=== PATIENT | male | born 2000 | race Caucasian/White ===

== ENCOUNTER 2018-08-25 21:22 | Emergency (ER) | payer MEDICAID ==
[~2018-08-25] VITALS: Ht 180.3 cm; Wt 89.0 kg
[2018-08-25] MEDS ORDERED: ibuprofen tablet 400 MG TABLET PO ONE ×2 (21:55→22:00)
[2018-08-25 23:04] VITALS: BP 128/71
== END 2018-08-25 23:09 | disposition home or self-care (01) ==
LOC: ER 21:23
DX: T23.012A Burn of unspecified degree of left thumb (nail), initial encounter (principal); F11.90 Opioid use, unspecified, uncomplicated; X12.XXXA Contact with other hot fluids, initial encounter; Y93.G3 Activity, cooking and baking; Y92.89 Other specified places as the place of occurrence of the external cause; Y99.8 Other external cause status
CPT/HCPCS: 99282

== ENCOUNTER 2021-03-09 17:55 | Emergency (ER) | payer MEDICAID ==
[~2021-03-09] VITALS: Ht 180.3 cm; Wt 92.1 kg
[2021-03-09 18:01] VITALS: BP 112/82
[2021-03-09] MEDS ORDERED: ondansetron/PF 4mg/2ml inj IV ONE (18:25)
[2021-03-09] MEDS ORDERED: normal saline 1000ML IV soln IVB ONE (18:25)
[2021-03-09 18:55] LABS: BASOPHILS % (AUTO) 0.1 % (0-1); EOSINOPHILS % (AUTO) 0.2 % (0-6); HEMATOCRIT 48.4 % (42.0-52.0); HEMOGLOBIN 16.5 g/dl (14.0-17.9); LYMPHOCYTES # (AUTO) 0.3 X10'3 (1.1-4.8); LYMPHOCYTES % (AUTO) 2.5 % (21-51); MEAN CORPUSCULAR HEMOGLOBIN 28.8 PG (27.0-31.0); MEAN CORPUSCULAR HGB CONC 34.2 g/dL (33.0-36.5); MEAN CORPUSCULAR VOLUME 84.3 FL (78-98); MONOCYTES # (AUTO) 0.4 X10'3 (0-0.9); MONOCYTES % (AUTO) 3.3 % (2-12); NEUTROPHILS # (AUTO) 11.5 X10'3 (1.8-7.7); NEUTROPHILS % (AUTO) 93.9 % (42-75); PLATELET COUNT 235 X10'3 (140-440); RED BLOOD COUNT 5.74 X10'6 (4.70-6.10); RED CELL DISTRIBUTION WIDTH 14.4 % (11.5-14.5); WHITE BLOOD COUNT 12.3 X10'3 (4.5-11.0)
[2021-03-09 19:09] LABS: ALANINE AMINOTRANSFERASE 49 U/L (12-78); ALBUMIN 4.7 G/DL (3.4-5.0); ALBUMIN/GLOBULIN RATIO 1.3 (1.1-1.5); ALKALINE PHOSPHATASE 86 IU/L (46-116); ANION GAP 15 (8-16); ASPARTATE AMINO TRANSFERASE 21 U/L (10-37); BILIRUBIN,TOTAL 1.9 MG/DL (0.1-1.0); BLOOD UREA NITROGEN 17 MG/DL (7-18); BUN/CREATININE RATIO 16.7 (5.4-32.0); CALCIUM 8.9 MG/DL (8.5-10.1); CHLORIDE 102 MMOL/L (99-107); CREATININE 1.02 MG/DL (0.60-1.10); GLUCOSE 122 MG/DL (70-104); LIPASE 197 U/L (73-393); MAGNESIUM 1.6 MG/DL (1.5-2.4); SODIUM 139 MMOL/L (135-145); TOTAL CARBON DIOXIDE 22.4 MMOL/L (24-32); TOTAL PROTEIN 8.4 G/DL (6.4-8.2); eGFR > 90 ML/MIN
[2021-03-09 19:12] LABS: ETHANOL < 0.010 GM/DL (0.0-0.010)
[2021-03-09] MEDS ORDERED: potassium Cl 20 mEq SR tablet PO ONE (19:15)
[2021-03-09] MEDS ORDERED: iohexol 300mg/ml 100ml inj. ONE (19:18)
[2021-03-09 20:12] LABS: CLARITY,URINE CLEAR (Clear); COLOR,URINE YELLOW (Yellow); GLUCOSE, URINE NEGATIVE (Neg); KETONES,URINE 15 mg/dl (Neg); LEUKOCYTE ESTERASE ,URINE NEGATIVE (Neg); NITRITES, URINE NEGATIVE (Neg); OCCULT BLOOD,URINE NEGATIVE (Neg); PROTEIN,URINE NEGATIVE (Neg); UROBILINOGEN,URINE 0.2 E.U/dL (0.2-1.0)
[2021-03-09 20:14] LABS: UA COLLECTION TYPE URINAL
== END 2021-03-09 20:43 | disposition home or self-care (01) ==
LOC: ER 17:57
DX: R10.84 Generalized abdominal pain (principal); R50.9 Fever, unspecified; R42 Dizziness and giddiness; F12.10 Cannabis abuse, uncomplicated; F11.10 Opioid abuse, uncomplicated; Z20.822 Contact with and (suspected) exposure to COVID-19
CPT/HCPCS: 36415; 74177; 80053; 80320; 81003; 83690; 83735; 85025; 87635; 96361; 96374; 99285; C9803; J2405; J7030; Q9967

== ENCOUNTER 2024-07-25 16:15 | Emergency (ER) | payer MEDICAID ==
[~2024-07-25] VITALS: Ht 182.9 cm; Wt 75.9 kg
[2024-07-25 16:42] LABS: BASOPHILS % (AUTO) 0.5 % (0-1); EOSINOPHILS # (AUTO) 0.1 X10'3 (0-0.9); EOSINOPHILS % (AUTO) 2.2 % (0-6); HEMATOCRIT 42.6 % (42.0-52.0); HEMOGLOBIN 14.5 g/dl (14.0-17.9); LYMPHOCYTES # (AUTO) 1.6 X10'3 (1.1-4.8); LYMPHOCYTES % (AUTO) 27.1 % (21-51); MEAN CORPUSCULAR HEMOGLOBIN 29.4 PG (27.0-31.0); MEAN CORPUSCULAR VOLUME 86.4 FL (78-98); MONOCYTES # (AUTO) 0.6 X10'3 (0-0.9); MONOCYTES % (AUTO) 10.5 % (2-12); NEUTROPHILS # (AUTO) 3.6 X10'3 (1.8-7.7); NEUTROPHILS % (AUTO) 59.7 % (42-75); PLATELET COUNT 249 X10'3 (140-440); RED BLOOD COUNT 4.94 X10'6 (4.70-6.10); RED CELL DISTRIBUTION WIDTH 14.2 % (11.5-14.5)
[2024-07-25 16:57] LABS: ALANINE AMINOTRANSFERASE 14 U/L (12-78); ALBUMIN 4.2 G/DL (3.4-5.0); ALBUMIN/GLOBULIN RATIO 1.2 (1.1-1.5); ALKALINE PHOSPHATASE 103 IU/L (46-116); ANION GAP 5 (8-16); ASPARTATE AMINO TRANSFERASE 11 U/L (10-37); BILIRUBIN,TOTAL 0.8 MG/DL (0.1-1.0); BLOOD UREA NITROGEN 15 MG/DL (7-18); BUN/CREATININE RATIO 19.2 (10.0-20.0); CALCIUM 8.6 MG/DL (8.5-10.1); CHLORIDE 105 MMOL/L (99-107); CREATININE 0.78 MG/DL (0.60-1.10); GLUCOSE 98 MG/DL (70-104); POTASSIUM 3.7 MMOL/L (3.5-5.1); SODIUM 142 MMOL/L (135-145); TOTAL CARBON DIOXIDE 32.2 MMOL/L (24-32); TOTAL PROTEIN 7.8 G/DL (6.4-8.2); eGFR > 90 ML/MIN
[2024-07-25 17:03] LABS: PRO BRAIN NATRIURETIC PEPTIDE < 30 PG/ML (0-125)
[2024-07-25 17:25] VITALS: PULSE 73; RESP 18; O2SAT 100
[2024-07-25 17:32] VITALS: BP 144/103
[2024-07-25 20:57] VITALS: TEMP 99.2
== END 2024-07-25 20:58 | disposition left against medical advice (07) ==
LOC: ER 16:16
DX: R07.89 Other chest pain (principal); R00.2 Palpitations; Z53.21 Procedure and treatment not carried out due to patient leaving prior to being seen by health care provider
CPT/HCPCS: 36415; 71045; 80053; 83880; 84484; 85025; 93005

== ENCOUNTER 2024-08-02 20:20 | Emergency (ER) | payer MEDICAID ==
[~2024-08-02] VITALS: Ht 182.9 cm; Wt 70.0 kg
[2024-08-02 20:44] LABS: BASOPHILS % (AUTO) 0.2 % (0-1); EOSINOPHILS # (AUTO) 0.1 X10'3 (0-0.9); EOSINOPHILS % (AUTO) 1.9 % (0-6); HEMOGLOBIN 14.6 g/dl (14.0-17.9); LYMPHOCYTES # (AUTO) 1.6 X10'3 (1.1-4.8); LYMPHOCYTES % (AUTO) 27.7 % (21-51); MEAN CORPUSCULAR HEMOGLOBIN 30.3 PG (27.0-31.0); MEAN CORPUSCULAR HGB CONC 34.7 g/dL (33.0-36.5); MEAN CORPUSCULAR VOLUME 87.3 FL (78-98); MONOCYTES # (AUTO) 0.5 X10'3 (0-0.9); MONOCYTES % (AUTO) 9.2 % (2-12); NEUTROPHILS # (AUTO) 3.5 X10'3 (1.8-7.7); PLATELET COUNT 232 X10'3 (140-440); RED BLOOD COUNT 4.81 X10'6 (4.70-6.10); WHITE BLOOD COUNT 5.8 X10'3 (4.5-11.0)
[2024-08-02 21:41] LABS: ALANINE AMINOTRANSFERASE 18 U/L (12-78); ALBUMIN 4.2 G/DL (3.4-5.0); ALBUMIN/GLOBULIN RATIO 1.2 (1.1-1.5); ALKALINE PHOSPHATASE 82 IU/L (46-116); ANION GAP 8 (8-16); ASPARTATE AMINO TRANSFERASE 11 U/L (10-37); BILIRUBIN,TOTAL 0.9 MG/DL (0.1-1.0); BLOOD UREA NITROGEN 8 MG/DL (7-18); CHLORIDE 103 MMOL/L (99-107); GLUCOSE 79 MG/DL (70-104); POTASSIUM 3.1 MMOL/L (3.5-5.1); SODIUM 143 MMOL/L (135-145); TOTAL CARBON DIOXIDE 31.6 MMOL/L (24-32); TOTAL PROTEIN 7.6 G/DL (6.4-8.2); eCRCL 139 ML/MIN; eGFR > 90 ML/MIN
[2024-08-02 21:52] LABS: PRO BRAIN NATRIURETIC PEPTIDE < 30 PG/ML (0-125)
[2024-08-03] MEDS: potassium Cl 20 mEq SR tablet PO STA (01:42)
[2024-08-03 01:59] VITALS: BP 138/89; PULSE 66; RESP 16; TEMP 98; O2SAT 98
== END 2024-08-03 02:00 | disposition home or self-care (01) ==
LOC: ER 20:21
DX: I10 Essential (primary) hypertension (principal); R07.89 Other chest pain; F12.90 Cannabis use, unspecified, uncomplicated
CPT/HCPCS: 36415; 80053; 83880; 84484; 85025; 93005; 99284

== ENCOUNTER 2025-04-19 09:05 | Emergency (ER) | payer MEDICAID ==
[~2025-04-19] VITALS: Ht 182.9 cm; Wt 99.7 kg
[2025-04-19 09:09] VITALS: BP 150/107; PULSE 81; RESP 18; TEMP 97.4; O2SAT 97
--- NOTE | 2025-04-19 09:29 | Physician Documentation ---
History of Present Illness ~ General Chief Complaint: See Chief Complaint Stated Complaint: MED CLEARANCE Time Seen by MD: 09:21 Primary Medical Doctor: none History of Present Illness Initial Comments 24-year-old male presents to the ED requesting evaluation for ongoing abuse and use of substance called Kratom and alcohol. Denies any current use has a today is requesting evaluation by someone who can help him get into recovery States his last alcohol drink was three days ago denies having any severe withdrawal symptoms Medication Reconciliation Allergies: Coded Allergies: No Known Allergies (Unverified , 04/19/25) Past Medical History Past Medical History: No Pertinent History Past Surgical History: no surgical history Alcohol Use: Occasionally Drug Use: marijuana, heroin Lives with: Family Lives In: Home Occupation: employed Review of Systems All Other Systems at this time: Reviewed and Negative ROS As stated above in the HPI, otherwise all systems are reviewed and negative. Physical Exam Physical Exam Vital Signs: Temperature: 97.4, Source: Oral, Heart Rate: 81, Respiratory Rate: 18, BP: 150/107, Pulse Oximetry: 97, Weight: 99.700 Physical Exam General: Alert, no apparent distress. Respiratory: Lungs clear, no respiratory distress. Chest: No accessory muscle use. Cardiovascular: Regular rate and rhythm, no murmurs. Psychiatric: Normal mood and affect. Skin: Normal color, warm and dry. No edema, no ecchymosis. Progress Results/Orders Results/Orders Vital Signs 04/19/25 09:09 Temp 97.4 Pulse 81 Resp 18 B/P (MAP) 150/107 Pulse Ox 97 Medical Decision Making Findings Placed an order for substance abuse navigator to assist patient with appropriate resources. He is currently medically cleared if you would like to go to recovery Departure Disposition: 01 HOME / SELF CARE / HOMELESS Impression: Primary Impression: Opiate abuse, continuous Condition: Stable Discharge Instructions: Opioid Use Disorder Additional Instructions: Medically cleared for [facility] or any other alcohol and drug program Referrals: NO PRIMARY CARE PROVIDER (PCP) Signature Scribe Signature: s Attestation: Scribed for Maksim Boateng [employer] Helper by Maksim Ozuna NP . 04/19/25 09:57 MAKSIM BOATENG NP Apr 19, 2025 09:29
== END 2025-04-19 10:26 | disposition home or self-care (01) ==
LOC: ER 09:06
DX: F11.10 Opioid abuse, uncomplicated (principal); F12.90 Cannabis use, unspecified, uncomplicated; Z72.89 Other problems related to lifestyle
CPT/HCPCS: 99281